=== PATIENT | female | born 1950 | race Two or more races ===

== ENCOUNTER 2024-04-12 21:28 | Emergency (ER) | payer BC, MEDICAID ==
[~2024-04-12] VITALS: Ht 152.4 cm; Wt 61.2 kg
[2024-04-12 21:33] VITALS: BP 107/63; TEMP 99
[2024-04-12 23:28] VITALS: O2SAT 97
== END 2024-04-12 23:30 | disposition home or self-care (01) ==
LOC: ER 21:31
DX: Z43.3 Encounter for attention to colostomy (principal); I10 Essential (primary) hypertension; Z90.49 Acquired absence of other specified parts of digestive tract
CPT/HCPCS: 99283; A6403; A4362

== ENCOUNTER 2024-09-20 13:20 | Inpatient (IN) | payer BC, MEDICAID ==
[~2024-09-20] VITALS: Ht 152.4 cm; Wt 62.6 kg
[2024-09-20] MEDS: IV NS 0.9% 1,000 ML BAG IV ONE ×2 (13:52→16:00)
[2024-09-20 14:53] LABS: ALBUMIN 3.7 g/dL (3.4-5.0); BILIRUBIN,DIRECT 0.1 mg/dL (0.0-0.2); BILIRUBIN,TOTAL 0.3 mg/dL (0.2-1.0); CALCIUM, SERUM 9.8 mg/dL (8.5-10.1); POTASSIUM 4.3 mmol/L (3.5-5.1); TOTAL PROTEIN, SERUM 8.1 g/dL (6.4-8.2)
[2024-09-20 15:08] LABS: BASOPHILS % (AUTO) 0.4 % (0.0-2.0); EOSINOPHILS # (AUTO) 0.2 K/uL (0.0-0.7); HEMATOCRIT 31 % (33-45); HEMOGLOBIN 10.7 g/dL (11.5-14.8); LYMPHOCYTES # (AUTO) 2.3 K/uL (0.8-4.8); LYMPHOCYTES % (AUTO) 38.5 % (20.0-44.0); MEAN CORPUSCULAR HEMOGLOBIN 29 PG (26.0-33.0); MEAN CORPUSCULAR HGB CONC 35 g/dl (31.0-36.0); MEAN CORPUSCULAR VOLUME 82 fL (82-100); MONOCYTES # (AUTO) 0.5 K/uL (0.1-1.30); MONOCYTES % (AUTO) 8.1 % (2.0-12.0); PLATELET COUNT (AUTO) 246 K/uL (150-450); RED BLOOD CELL COUNT(AUTO) 3.73 MIL/uL (4.0-5.2); RED CELL DISTRIBUTION WIDTH 16.6 % (11.5-15.0); WHITE BLOOD COUNT (AUTO) 6.1 K/uL (4.3-11.0)
[2024-09-20] MEDS: MECLIZINE HCL 25 MG TABLET PO ONE (17:57)
[2024-09-20] MEDS ORDERED: CITA10TA9 PO (18:34)
[2024-09-20] MEDS ORDERED: LOSA50TA39 PO (18:34)
[2024-09-20] MEDS ORDERED: ASCO-352 PO (18:34)
[2024-09-20] MEDS ORDERED: ACET-2030 PO (18:34)
[2024-09-20] MEDS ORDERED: TRAM50TA2 PO (18:34)
[2024-09-20] MEDS ORDERED: CHOL100062 PO (18:34)
[2024-09-20] MEDS ORDERED: MAGNESIUM CITRATE PO (18:34)
[2024-09-20] MEDS ORDERED: SENN8.6T19 PO (18:34)
[2024-09-20] MEDS ORDERED: SIMV-49 PO (18:34)
[2024-09-20 18:45] LABS: APPEARANCE,URINE CLEAR (CLEAR); BILIRUBIN,URINE NEGATIVE (NEGATIVE); BLOOD, URINE TRACE-INTA Ery/uL (NEGATIVE); COLOR,URINE YELLOW (YELLOW); KETONES,URINE NEGATIVE (NEGATIVE); LEUKOCYTE ESTERASE ,URINE NEGATIVE (NEGATIVE); NITRITE, URINE NEGATIVE (NEGATIVE); PH,URINE 5.5 (5.0-8.0); PROTEIN,URINE NEGATIVE (NEGATIVE); UGLUCOSE NEGATIVE (NEGATIVE); UROBILINOGEN,URINE 0.2 EU/dL (0.2)
[2024-09-20 18:57] LABS: RBC,URINE 0-2 /HPF (0-2)
[2024-09-20 18:58] LABS: ADD URINE CULTURE NO; BACTERIA,URINE Rare /HPF (None Seen); MUCUS,URINE Rare /LPF (None Seen); SQUAMOUS EPITHELIAL CELL,UR Rare /HPF (None Seen); WBC,URINE 0-2 /HPF (0-3)
[2024-09-20 22:55] VITALS: BP 159/77; TEMP 98.2; O2SAT 100
[2024-09-20] MEDS ORDERED: TRAMADOL HCL 50 MG TABLET PO PRN (23:30)
[2024-09-20] MEDS ORDERED: HYDROCODONE/APAP 5/325MG TABLET PO PRN (23:30)
[2024-09-20] MEDS ORDERED: HYDROCODONE/APAP 10/325MG TABLET PO PRN (23:30)
[2024-09-20] MEDS ORDERED: ONDANSETRON HCL/PF 4 MG/2 ML VIAL IV PRN (23:30)
[2024-09-20] MEDS ORDERED: ACETAMINOPHEN 325 MG TABLET PO PRN (23:30)
[2024-09-21 06:39] LABS: BASOPHILS % (AUTO) 0.5 % (0.0-2.0); EOSINOPHILS # (AUTO) 0.3 K/uL (0.0-0.7); EOSINOPHILS % (AUTO) 5.4 % (0.0-6.0); HEMATOCRIT 33 % (33-45); HEMOGLOBIN 11.2 g/dL (11.5-14.8); LYMPHOCYTES # (AUTO) 2.4 K/uL (0.8-4.8); LYMPHOCYTES % (AUTO) 39.4 % (20.0-44.0); MEAN CORPUSCULAR HEMOGLOBIN 28 PG (26.0-33.0); MEAN CORPUSCULAR HGB CONC 34 g/dl (31.0-36.0); MEAN CORPUSCULAR VOLUME 82 fL (82-100); MONOCYTES # (AUTO) 0.4 K/uL (0.1-1.30); NEUTROPHILS # (AUTO) 2.9 K/uL (1.8-8.9); NEUTROPHILS % (AUTO) 47.7 % (43.0-81.0); PLATELET COUNT (AUTO) 262 K/uL (150-450); RED BLOOD CELL COUNT(AUTO) 4.01 MIL/uL (4.0-5.2); RED CELL DISTRIBUTION WIDTH 16.6 % (11.5-15.0)
[2024-09-21 07:30] VITALS: BP 124/67; TEMP 97.9; O2SAT 94
[2024-09-21 07:32] LABS: CALCIUM, SERUM 9.1 mg/dL (8.5-10.1); CREATININE 0.9 mg/dL (0.6-1.3); POTASSIUM 4.5 mmol/L (3.5-5.1)
[2024-09-21 08:02] VITALS: BP 124/67; TEMP 97.9; O2SAT 94
[2024-09-21] MEDS ORDERED: LOPE2CAP40 PO ×2 (09:01→09:02)
[2024-09-21] MEDS ORDERED: ONDA4TAB5 PO (09:01)
[2024-09-21] MEDS ORDERED: MECL-159 PO (09:01)
[2024-09-21] MEDS: CITALOPRAM HYDROBROMIDE 20 MG TABLET PO SCH (09:13)
[2024-09-21] MEDS: ASCORBIC ACID 500 MG TABLET PO SCH (09:13)
[2024-09-21] MEDS: LOPERAMIDE HCL (2 MG CAP) 2 MG CAPSULE PO SCH (09:13)
[2024-09-21] MEDS: CHOLECALCIFEROL 1,000 UNIT TABLET (VIT D3) PO SCH (09:13)
[2024-09-21] MEDS: MECLIZINE HCL 25 MG TABLET PO SCH (09:17)
[2024-09-21 11:25] LABS: THYROID STIMULATING HORMONE 2.24 uIU/mL (0.358-3.74)
[2024-09-21 15:54] VITALS: BP 127/64; TEMP 97.9; O2SAT 96
[2024-09-21 16:00] VITALS: BP 127/64; TEMP 97.9; O2SAT 96
[2024-09-21 20:00] VITALS: BP 113/65; TEMP 98.6; O2SAT 98
[2024-09-21] MEDS: SIMVASTATIN 20 MG TABLET PO SCH (21:32)
[2024-09-22 08:00] VITALS: BP 136/65; TEMP 97.7; O2SAT 97
[2024-09-24 07:11] LABS: FOLIC ACID 12.9 ng/mL (>3.0)
== END 2024-09-22 14:00 | disposition home or self-care (01) | DRG 149 ==
LOC: ER 13:43 → TELE 21:14 → MED 23:17
PROVIDERS: ADMIT Internal Medicine; ATTEND Internal Medicine
DX: H81.10 Benign paroxysmal vertigo, unspecified ear (principal); K57.32 Diverticulitis of large intestine without perforation or abscess without bleeding; D84.89 Other immunodeficiencies; E86.0 Dehydration; R55 Syncope and collapse; E78.5 Hyperlipidemia, unspecified; I10 Essential (primary) hypertension; M06.9 Rheumatoid arthritis, unspecified; Z90.49 Acquired absence of other specified parts of digestive tract; Z93.2 Ileostomy status; F32.1 Major depressive disorder, single episode, moderate; D50.9 Iron deficiency anemia, unspecified
CPT/HCPCS: 36415; 70450-TC; 70551-TC; 71045-TC; 80048-TC; 80076-TC; 81001; 82607-TC; 82962-TC; 83690-TC; 83921; 84425; 84443-TC; 85025-TC; 97112-TC; 97116-TC; 97530-TC; A4223; A6253; A6403; G0378; J7030; J8597